=== PATIENT | female | born 1975 | race Caucasian/White ===

== ENCOUNTER 2017-05-09 10:01 | Day surgery (SDC) | payer BC ==
[~2017-05-09] VITALS: Ht 163.8 cm; Wt 59.0 kg
[~2017-05-09 10:01] MED LIST: FIBER-TABS625 MG PO; ORTHO TRI-CY1 TABLE1 PO; PROBIOTIC1 EAC1 PO
[2017-05-09 10:37] VITALS: BP 138/69
[2017-05-09 15:16] VITALS: BP 137/79
[2017-05-09 16:00] VITALS: BP 124/70
[2017-05-12 11:53] LABS: INTERNAL CONTROL VALID? YES
== END 2017-05-09 16:15 | disposition home or self-care (01) ==
LOC: SDC 10:01
PROVIDERS: Podiatrist Foot & Ankle Surgery
PROC: 0QSN04Z Reposition Right Metatarsal with Internal Fixation Device, Open Approach (ICD-10-PCS; principal; 2017-05-09)
DX: M20.11 Hallux valgus (acquired), right foot (principal); Z88.2 Allergy status to sulfonamides; Z88.1 Allergy status to other antibiotic agents
CPT/HCPCS: 73630; 84703; J0690; J1100; J2250; S0020